=== PATIENT | female | born 1970 | race Caucasian/White ===

== ENCOUNTER 2018-06-03 12:38 | Emergency (ER) | payer BC, MEDICAID ==
[~2018-06-03] VITALS: Ht 162.6 cm; Wt 77.3 kg
[~2018-06-03 12:38] MED LIST: HYDR-3965 PO; LISI-604 PO; PANT40TA39 PO; POTA10TA36 PO; ZES10T PO
[2018-06-03] MEDS ORDERED: ondansetron/PF 4mg/2ml inj IV ONE (13:45)
[2018-06-03] MEDS ORDERED: morphine 4 MG/ML inj SYRINge IV ONE (13:45)
[2018-06-03 14:09] LABS: BASOPHILS % (AUTO) 0.2 % (0-1); EOSINOPHILS # (AUTO) 0.2 X10'3 (0-0.9); EOSINOPHILS % (AUTO) 1.6 % (0-6); HEMATOCRIT 34.4 % (35.0-45.0); HEMOGLOBIN 11.9 g/dl (12.0-16.0); LYMPHOCYTES # (AUTO) 1.3 X10'3 (1.1-4.8); LYMPHOCYTES % (AUTO) 12.1 % (21-51); MEAN CORPUSCULAR HEMOGLOBIN 31.4 PG (27.0-31.0); MEAN CORPUSCULAR HGB CONC 34.6 % (33.0-36.5); MEAN CORPUSCULAR VOLUME 90.8 FL (78-98); MEAN PLATELET VOLUME 8.1 FL (7.4-10.4); MONOCYTES # (AUTO) 1.2 X10'3 (0-0.9); MONOCYTES % (AUTO) 11.2 % (2-12); NEUTROPHILS # (AUTO) 7.9 X10'3 (1.8-7.7); NEUTROPHILS % (AUTO) 74.9 % (42-75); PLATELET COUNT 195 X10'3 (140-440); RED BLOOD COUNT 3.79 X10'6 (4.20-5.60); RED CELL DISTRIBUTION WIDTH 12.3 % (11.5-14.5); WHITE BLOOD COUNT 10.5 X10'3 (4.5-11.0)
[2018-06-03 14:26] LABS: INR 0.9 INR; PARTIAL THROMBOPLASTIN TIME 28 SECONDS (22-32); PROTHROMBIN TIME 9.8 SECONDS (9.0-12.0)
[2018-06-03 14:39] LABS: ALANINE AMINOTRANSFERASE 15 U/L (12-78); ALBUMIN 2.5 G/DL (3.4-5.0); ALBUMIN/GLOBULIN RATIO 0.6 (1.1-1.5); ALKALINE PHOSPHATASE 54 IU/L (46-116); ANION GAP 7 (8-16); ASPARTATE AMINO TRANSFERASE 10 U/L (10-37); BILIRUBIN,TOTAL 0.6 MG/DL (0.1-1.0); BLOOD UREA NITROGEN 15 MG/DL (7-18); BUN/CREATININE RATIO 18.8 (6.6-38.0); CALCIUM 8.2 MG/DL (8.5-10.1); CHLORIDE 98 MMOL/L (99-107); GLUCOSE 137 MG/DL (70-104); LIPASE 68 U/L (73-393); POTASSIUM 3.1 MMOL/L (3.5-5.1); SODIUM 135 MMOL/L (135-145); TOTAL CARBON DIOXIDE 30.1 MMOL/L (24-32); TOTAL PROTEIN 6.7 G/DL (6.4-8.2); eGFR 78 ML/MIN
[2018-06-03] MEDS ORDERED: potassium Cl 20 mEq SR tablet PO STA (14:46)
[2018-06-03] MEDS ORDERED: iohexol 300mg/ml 100ml inj. ONE (14:55)
[2018-06-03 15:14] LABS: URINE HCG NEGATIVE (NEG)
[2018-06-03 15:15] LABS: CLARITY,URINE CLEAR (Clear); COLOR,URINE YELLOW (Yellow); GLUCOSE, URINE 100 mg/dl (Neg); KETONES,URINE NEGATIVE (Neg); LEUKOCYTE ESTERASE ,URINE NEGATIVE (Neg); NITRITES, URINE NEGATIVE (Neg); OCCULT BLOOD,URINE MODERATE (Neg); PROTEIN,URINE NEGATIVE (Neg); UROBILINOGEN,URINE >=8.0 E.U/dL (0.2-1.0)
[2018-06-03 15:21] LABS: UA COLLECTION TYPE CLN CATCH MIDSTREAM
[2018-06-03 15:22] LABS: BACTERIA,URINE 1+ /HPF (Neg); SQUAMOUS EPITHELIAL CELL,UR FEW /LPF (FEW); WBC,URINE 0-4 /HPF (0-4)
[2018-06-03 16:08] VITALS: BP 118/56
== END 2018-06-03 16:10 | disposition home or self-care (01) ==
LOC: ER 12:39
DX: R10.84 Generalized abdominal pain (principal); R31.9 Hematuria, unspecified; R50.9 Fever, unspecified; I10 Essential (primary) hypertension; Z88.0 Allergy status to penicillin; Z79.899 Other long term (current) drug therapy
CPT/HCPCS: 36415; 74177; 80053; 81001; 81025; 83605; 83690; 85025; 85610; 85730; 87040; 96374; 96375; 99285; J2270; J2405; J7030; Q9967

== ENCOUNTER 2018-06-06 11:09 | Inpatient (IN) | payer MEDICAID ==
[~2018-06-06] VITALS: Ht 162.6 cm; Wt 83.8 kg
[2018-06-06] VITALS (16 sets, daily range): BP systolic 87–100; BP diastolic 45–94
[2018-06-06] MEDS ORDERED: famotidine 20mg tablet PO ONE (12:46)
[2018-06-06] MEDS ORDERED: clindamycin-Cleocin 900mg/D5W 50 ML IV ONE (12:46)
[2018-06-06] MEDS ORDERED: NORMAL SALINE IV ONE (12:47)
[2018-06-06] MEDS ORDERED: GENTAMICIN IV ONE (12:47)
[2018-06-06] MEDS ORDERED: ringers solution, lacted 1,000 ML IV SCH ×2 (12:48→14:14)
[2018-06-06] MEDS ORDERED: LIDOcaine 1% (10mg/ml) 2ml vial ONE (13:09)
[2018-06-06] MEDS ORDERED: oxyCODONE/APAP 10/325mg tablet PO ONE (13:10)
[2018-06-06 13:14] LABS: BASOPHILS % (AUTO) 0.2 % (0-1); EOSINOPHILS # (AUTO) 0.2 X10'3 (0-0.9); EOSINOPHILS % (AUTO) 1.9 % (0-6); HEMATOCRIT 30.5 % (35.0-45.0); HEMOGLOBIN 10.6 g/dl (12.0-16.0); LYMPHOCYTES # (AUTO) 1.3 X10'3 (1.1-4.8); LYMPHOCYTES % (AUTO) 11.8 % (21-51); MEAN CORPUSCULAR HEMOGLOBIN 31.7 PG (27.0-31.0); MEAN CORPUSCULAR HGB CONC 34.5 % (33.0-36.5); MEAN CORPUSCULAR VOLUME 91.9 FL (78-98); MEAN PLATELET VOLUME 7.7 FL (7.4-10.4); MONOCYTES # (AUTO) 0.9 X10'3 (0-0.9); MONOCYTES % (AUTO) 8.8 % (2-12); NEUTROPHILS # (AUTO) 8.3 X10'3 (1.8-7.7); NEUTROPHILS % (AUTO) 77.3 % (42-75); PLATELET COUNT 224 X10'3 (140-440); RED BLOOD COUNT 3.32 X10'6 (4.20-5.60); RED CELL DISTRIBUTION WIDTH 12.4 % (11.5-14.5); WHITE BLOOD COUNT 10.7 X10'3 (4.5-11.0)
[2018-06-06 13:27] LABS: ALANINE AMINOTRANSFERASE 37 U/L (12-78); ALBUMIN 2.3 G/DL (3.4-5.0); ALBUMIN/GLOBULIN RATIO 0.5 (1.1-1.5); ALKALINE PHOSPHATASE 80 IU/L (46-116); ANION GAP 6 (8-16); ASPARTATE AMINO TRANSFERASE 28 U/L (10-37); BILIRUBIN,TOTAL 0.5 MG/DL (0.1-1.0); BLOOD UREA NITROGEN 36 MG/DL (7-18); BUN/CREATININE RATIO 32.7 (6.6-38.0); CALCIUM 8.4 MG/DL (8.5-10.1); CHLORIDE 98 MMOL/L (99-107); GLUCOSE 115 MG/DL (70-104); POTASSIUM 3.5 MMOL/L (3.5-5.1); SODIUM 133 MMOL/L (135-145); TOTAL CARBON DIOXIDE 29.1 MMOL/L (24-32); eGFR 54 ML/MIN
[2018-06-06] MEDS ORDERED: hydrALAZINE 20mg/ml inj. IV PRN (14:15)
[2018-06-06] MEDS ORDERED: morphine 4 MG/ML inj SYRINge IV PRN ×2 (14:15)
[2018-06-06] MEDS ORDERED: HYDROmorphone 1 mg/ml syringe IV PRN ×2 (14:15)
[2018-06-06] MEDS ORDERED: labetalol 20mg/4ml (5mg/ml) syringe IV PRN (14:15)
[2018-06-06] MEDS ORDERED: ondansetron/PF 4mg/2ml inj IV PRN (14:15)
[2018-06-06] MEDS ORDERED: fentaNYL/PF 50MCG/1 ML 2ML syringe ONE (15:11)
[2018-06-06] MEDS ORDERED: midazolam 2 mg/2 ml injection ONE (15:12)
[2018-06-06] MEDS ORDERED: LIDOcaine 2% (20mg/ml) 5ml vial ONE (15:13)
[2018-06-06] MEDS ORDERED: glycopyrrolate 0.2mg/ml inj ONE (15:13)
[2018-06-06] MEDS ORDERED: neostigmine methylsulfate 1 MG/ML 10ml vial ONE (15:13)
[2018-06-06] MEDS ORDERED: rocuronium 10mg/ml inj IV ONE (15:13)
[2018-06-06] MEDS ORDERED: propofol inj 20 ML IV ONE (15:13)
[2018-06-06] MEDS ORDERED: ondansetron/PF 4mg/2ml inj ONE (15:14)
[2018-06-06] MEDS ORDERED: sevoflurane 250ml liquid IH ONE (15:18)
[2018-06-06] MEDS ORDERED: dexamethasone sod phosphate 4mg/ml inj. ONE (15:37)
[2018-06-06 15:54] LABS: CLARITY,URINE CLEAR (Clear); COLOR,URINE YELLOW (Yellow); GLUCOSE, URINE NEGATIVE (Neg); KETONES,URINE NEGATIVE (Neg); LEUKOCYTE ESTERASE ,URINE NEGATIVE (Neg); NITRITES, URINE NEGATIVE (Neg); OCCULT BLOOD,URINE LARGE (Neg); PH,URINE 5.5 (4.8-8.0); PROTEIN,URINE NEGATIVE (Neg)
[2018-06-06 15:58] LABS: UA COLLECTION TYPE CLN CATCH MIDSTREAM
[2018-06-06 16:01] LABS: BACTERIA,URINE NONE SEEN /HPF (Neg); SQUAMOUS EPITHELIAL CELL,UR FEW /LPF (FEW); WBC,URINE 0-4 /HPF (0-4)
[2018-06-06] MEDS ORDERED: glucagon, human recombinant 1mg kit SUBCUT PRN (16:10)
[2018-06-06] MEDS ORDERED: insulin Lispro (HumaLOG) vial - multi-dose SQ SCH (16:10)
[2018-06-06] MEDS ORDERED: dextrose 50%-water 50ml dispensing syringe IV PRN ×2 (16:10)
[2018-06-06] MEDS ORDERED: naloxone 0.4 mg/ml inj IV PRN (16:10)
[2018-06-06] MEDS ORDERED: MESSAGE TO PHARMACY PO ONE (16:10)
[2018-06-06] MEDS ORDERED: CADD PCA waste documentation MC PRN (16:10)
[2018-06-06] MEDS ORDERED: HYDROcodone/acetaminophen 5mg/325mg tablet PO PRN (16:10)
[2018-06-06] MEDS ORDERED: dextrose ORAL solution 15 GM/59 ML bottle PO PRN ×2 (16:10)
[2018-06-06 16:41] LABS: HEMOGLOBIN A1C 6.1 % (4.5-6.2)
[2018-06-06] MEDS: HYDROmorphone/NS 1 mg/ml CADD 50 ML IV SCH ×4 (17:20→23:00)
[2018-06-06] MEDS: insulin glargine (Lantus) pen - multi-dose SQ SCH (21:00)
[2018-06-06] MEDS: Potassium Cl inj 20 MEQ in ringers solution, lacted 1,000 ML IV SCH (21:03)
[2018-06-06] MEDS ORDERED: SERT100T PO (23:24)
[2018-06-06] MEDS ORDERED: LISI-600 PO (23:24)
[2018-06-06] MEDS ORDERED: ATEN25TA7 PO (23:24)
[2018-06-06] MEDS ORDERED: HYDR-565 PO (23:28)
[2018-06-07] VITALS: BP 90/56
[2018-06-07] MEDS: Potassium Cl inj 20 MEQ in ringers solution, lacted 1,000 ML IV SCH ×4 (00:14→21:31)
[2018-06-07] MEDS: HYDROmorphone/NS 1 mg/ml CADD 50 ML IV SCH ×12 (01:00→23:00)
[2018-06-07 04:00] VITALS: BP 99/49
[2018-06-07 05:15] LABS: BASOPHILS % (AUTO) 0.1 % (0-1); EOSINOPHILS % (AUTO) 0 % (0-6); HEMATOCRIT 31.5 % (35.0-45.0); HEMOGLOBIN 10.7 g/dl (12.0-16.0); LYMPHOCYTES # (AUTO) 0.7 X10'3 (1.1-4.8); LYMPHOCYTES % (AUTO) 5.4 % (21-51); MEAN CORPUSCULAR HEMOGLOBIN 31.4 PG (27.0-31.0); MEAN CORPUSCULAR HGB CONC 34.1 % (33.0-36.5); MEAN CORPUSCULAR VOLUME 92.2 FL (78-98); MEAN PLATELET VOLUME 8.4 FL (7.4-10.4); MONOCYTES # (AUTO) 0.5 X10'3 (0-0.9); MONOCYTES % (AUTO) 4.4 % (2-12); NEUTROPHILS # (AUTO) 11.1 X10'3 (1.8-7.7); NEUTROPHILS % (AUTO) 90.1 % (42-75); PLATELET COUNT 230 X10'3 (140-440); RED BLOOD COUNT 3.42 X10'6 (4.20-5.60); RED CELL DISTRIBUTION WIDTH 12.1 % (11.5-14.5); WHITE BLOOD COUNT 12.3 X10'3 (4.5-11.0)
[2018-06-07] MEDS: lisinopril 10 MG tablet PO SCH (08:00)
[2018-06-07 08:06] VITALS: BP 103/52
[2018-06-07 11:37] VITALS: BP 117/57
[2018-06-07] MEDS: levoFLOXACIN-Levaquin 500mg/D5 100 ML IV SCH (14:39)
[2018-06-07 20:00] VITALS: BP 114/56
[2018-06-07] MEDS: insulin glargine (Lantus) pen - multi-dose SQ SCH (21:00)
[2018-06-07] MEDS: docusate sod 100mg capsule PO SCH (21:29)
[2018-06-08] VITALS: BP 101/52
[2018-06-08] MEDS: HYDROmorphone/NS 1 mg/ml CADD 50 ML IV SCH ×12 (01:00→23:00)
[2018-06-08 04:06] LABS: BASOPHILS % (AUTO) 0.4 % (0-1); EOSINOPHILS # (AUTO) 0.1 X10'3 (0-0.9); EOSINOPHILS % (AUTO) 1.2 % (0-6); HEMATOCRIT 28.9 % (35.0-45.0); HEMOGLOBIN 9.8 g/dl (12.0-16.0); LYMPHOCYTES # (AUTO) 1.4 X10'3 (1.1-4.8); LYMPHOCYTES % (AUTO) 16.6 % (21-51); MEAN CORPUSCULAR HEMOGLOBIN 31.3 PG (27.0-31.0); MEAN CORPUSCULAR HGB CONC 33.8 % (33.0-36.5); MEAN CORPUSCULAR VOLUME 92.8 FL (78-98); MONOCYTES # (AUTO) 0.6 X10'3 (0-0.9); MONOCYTES % (AUTO) 7.4 % (2-12); NEUTROPHILS # (AUTO) 6.3 X10'3 (1.8-7.7); NEUTROPHILS % (AUTO) 74.4 % (42-75); PLATELET COUNT 245 X10'3 (140-440); RED BLOOD COUNT 3.12 X10'6 (4.20-5.60); RED CELL DISTRIBUTION WIDTH 12.5 % (11.5-14.5); WHITE BLOOD COUNT 8.5 X10'3 (4.5-11.0)
[2018-06-08] MEDS: Potassium Cl inj 20 MEQ in ringers solution, lacted 1,000 ML IV SCH ×3 (04:15→22:32)
[2018-06-08 06:52] VITALS: BP 113/62
[2018-06-08] MEDS: docusate sod 100mg capsule PO SCH ×2 (07:52→19:41)
[2018-06-08] MEDS: levoFLOXACIN-Levaquin 500mg/D5 100 ML IV SCH (07:52)
[2018-06-08] MEDS: lisinopril 10 MG tablet PO SCH (07:52)
[2018-06-08 11:01] VITALS: BP 107/61
[2018-06-08 18:00] VITALS: BP 121/60
[2018-06-08] MEDS ORDERED: mineral oil 133ml enema RC PRN (18:35)
[2018-06-08] MEDS: insulin glargine (Lantus) pen - multi-dose SQ SCH (21:00)
[2018-06-09] VITALS: BP 103/50
[2018-06-09] MEDS: HYDROmorphone/NS 1 mg/ml CADD 50 ML IV SCH ×12 (01:00→23:00)
[2018-06-09 05:48] LABS: BASOPHILS % (AUTO) 0.5 % (0-1); EOSINOPHILS # (AUTO) 0.1 X10'3 (0-0.9); EOSINOPHILS % (AUTO) 1.3 % (0-6); HEMATOCRIT 31.4 % (35.0-45.0); HEMOGLOBIN 10.8 g/dl (12.0-16.0); LYMPHOCYTES # (AUTO) 1.4 X10'3 (1.1-4.8); LYMPHOCYTES % (AUTO) 17.1 % (21-51); MEAN CORPUSCULAR HEMOGLOBIN 31.3 PG (27.0-31.0); MEAN CORPUSCULAR HGB CONC 34.2 % (33.0-36.5); MEAN CORPUSCULAR VOLUME 91.4 FL (78-98); MEAN PLATELET VOLUME 8.3 FL (7.4-10.4); MONOCYTES # (AUTO) 0.7 X10'3 (0-0.9); MONOCYTES % (AUTO) 8.8 % (2-12); NEUTROPHILS # (AUTO) 5.9 X10'3 (1.8-7.7); NEUTROPHILS % (AUTO) 72.3 % (42-75); PLATELET COUNT 307 X10'3 (140-440); RED BLOOD COUNT 3.44 X10'6 (4.20-5.60); RED CELL DISTRIBUTION WIDTH 12.4 % (11.5-14.5); WHITE BLOOD COUNT 8.1 X10'3 (4.5-11.0)
[2018-06-09 08:00] VITALS: BP 116/72
[2018-06-09] MEDS: lisinopril 10 MG tablet PO SCH (08:12)
[2018-06-09] MEDS: docusate sod 100mg capsule PO SCH ×2 (08:12→19:10)
[2018-06-09] MEDS: levoFLOXACIN-Levaquin 500mg/D5 100 ML IV SCH (08:12)
[2018-06-09] MEDS: Potassium Cl inj 20 MEQ in ringers solution, lacted 1,000 ML IV SCH ×2 (10:41→17:01)
[2018-06-09 12:25] VITALS: BP 119/77
[2018-06-09] MEDS ORDERED: diphenhydrAMINE 50 mg/ml inj IV ONE (12:55)
[2018-06-09 18:00] VITALS: BP 106/58
[2018-06-09] MEDS: lactobacillus rhamnosus 10,000 MMU CELLS/CAPSULE PO SCH (19:11)
[2018-06-09] MEDS: insulin glargine (Lantus) pen - multi-dose SQ SCH (21:00)
[2018-06-10] VITALS: BP 96/51
[2018-06-10] MEDS: HYDROmorphone/NS 1 mg/ml CADD 50 ML IV SCH ×7 (00:42→13:00)
[2018-06-10] MEDS: Potassium Cl inj 20 MEQ in ringers solution, lacted 1,000 ML IV SCH ×2 (00:42→08:32)
[2018-06-10 05:15] LABS: BASOPHILS % (AUTO) 0.4 % (0-1); EOSINOPHILS # (AUTO) 0.1 X10'3 (0-0.9); EOSINOPHILS % (AUTO) 0.8 % (0-6); HEMATOCRIT 31.2 % (35.0-45.0); HEMOGLOBIN 10.6 g/dl (12.0-16.0); LYMPHOCYTES # (AUTO) 1.6 X10'3 (1.1-4.8); LYMPHOCYTES % (AUTO) 19.9 % (21-51); MEAN CORPUSCULAR HEMOGLOBIN 31.2 PG (27.0-31.0); MEAN CORPUSCULAR VOLUME 91.5 FL (78-98); MEAN PLATELET VOLUME 7.9 FL (7.4-10.4); MONOCYTES # (AUTO) 0.6 X10'3 (0-0.9); MONOCYTES % (AUTO) 7.5 % (2-12); NEUTROPHILS # (AUTO) 5.8 X10'3 (1.8-7.7); NEUTROPHILS % (AUTO) 71.4 % (42-75); PLATELET COUNT 328 X10'3 (140-440); RED BLOOD COUNT 3.41 X10'6 (4.20-5.60); RED CELL DISTRIBUTION WIDTH 12.6 % (11.5-14.5); WHITE BLOOD COUNT 8.1 X10'3 (4.5-11.0)
[2018-06-10 08:00] VITALS: BP 117/70
[2018-06-10] MEDS: docusate sod 100mg capsule PO SCH (08:30)
[2018-06-10] MEDS: lisinopril 10 MG tablet PO SCH (08:30)
[2018-06-10] MEDS: lactobacillus rhamnosus 10,000 MMU CELLS/CAPSULE PO SCH (08:30)
[2018-06-10] MEDS ORDERED: levoFLOXACIN 500mg tablet PO SCH (11:00)
[2018-06-10 12:00] VITALS: BP 132/76
[2018-06-10] MEDS ORDERED: CLIN150C2 PO (15:15)
[2018-06-10] MEDS ORDERED: HYDR-565 PO (15:15)
== END 2018-06-10 17:34 | disposition home health service (06) | DRG 711 ==
LOC: PAS IN 11:58 → SUR 3N 17:16
PROVIDERS: ADMIT Surgery; ATTEND Surgery
PROC: 0WPF0JZ Removal of Synthetic Substitute from Abdominal Wall, Open Approach (ICD-10-PCS; principal; 2018-06-06 15:18)
DX: T81.4XXA Infection following a procedure, initial encounter (principal); L02.211 Cutaneous abscess of abdominal wall; E11.9 Type 2 diabetes mellitus without complications; Z80.51 Family history of malignant neoplasm of kidney; Z87.891 Personal history of nicotine dependence; Z88.0 Allergy status to penicillin; Z90.710 Acquired absence of both cervix and uterus; Y83.8 Other surgical procedures as the cause of abnormal reaction of the patient, or of later complication, without mention of misadventure at the time of the procedure; Y92.89 Other specified places as the place of occurrence of the external cause
CPT/HCPCS: 36415; 80053; 81001; 82948; 83036; 85025; 87070; 87077; 87185; A4649; A6212; A6449; A7000; C1758; J1100; J1170; J1200; J1580; J1815; J1956; J2001; J2250; J2405; J2704; J2710; J3010; J3480; J3490; J7030; J7120

== ENCOUNTER 2018-07-12 08:56 | Day surgery (SDC) | payer BC ==
[~2018-07-12 08:56] MED LIST changes: +ATEN25TA7 PO; -HYDR-3965 PO; +HYDR-4353 PO; -LISI-604 PO; -PANT40TA39 PO; -POTA10TA36 PO; +SERT100T PO
[2018-07-12] MEDS ORDERED: LIDOcaine/PRILOcaine 5gm cream TP ONE (09:45)
[2018-07-12] MEDS ORDERED: mupirocin 2% ointment 22GM ONE (10:24)
[2018-07-12] MEDS ORDERED: nystatin/triamcinolone cream 15gm TP ONE (10:27)
== END 2018-07-12 10:35 | disposition home or self-care (01) ==
LOC: WOUND CARE 08:56
PROVIDERS: ATTEND Surgery
DX: T81.89XA Other complications of procedures, not elsewhere classified, initial encounter (principal); E11.622 Type 2 diabetes mellitus with other skin ulcer; L98.491 Non-pressure chronic ulcer of skin of other sites limited to breakdown of skin; E11.22 Type 2 diabetes mellitus with diabetic chronic kidney disease; I12.9 Hypertensive chronic kidney disease with stage 1 through stage 4 chronic kidney disease, or unspecified chronic kidney disease; N18.9 Chronic kidney disease, unspecified; E11.42 Type 2 diabetes mellitus with diabetic polyneuropathy; E11.311 Type 2 diabetes mellitus with unspecified diabetic retinopathy with macular edema; F32.9 Major depressive disorder, single episode, unspecified; Z89.421 Acquired absence of other right toe(s); Z99.2 Dependence on renal dialysis; Z94.0 Kidney transplant status; Z79.891 Long term (current) use of opiate analgesic; Z79.899 Other long term (current) drug therapy; Z87.891 Personal history of nicotine dependence; Z79.4 Long term (current) use of insulin; Z79.82 Long term (current) use of aspirin; X58.XXXA Exposure to other specified factors, initial encounter; Y93.89 Activity, other specified; Y92.89 Other specified places as the place of occurrence of the external cause; Y99.8 Other external cause status
CPT/HCPCS: 17250; A6021; A6222

== ENCOUNTER 2019-03-06 10:34 | Inpatient (IN) | payer BC, OTHER ==
[~2019-03-06] VITALS: Ht 152.4 cm; Wt 86.4 kg
[~2019-03-06 10:34] MED LIST changes: -HYDR-4353 PO
[2019-03-06] MEDS ORDERED: normal saline 1000ML IV soln IVB ONE (10:50)
[2019-03-06] MEDS ORDERED: ketorolac trometh. 30mg/ml inj. IV ONE (10:50)
[2019-03-06 11:02] LABS: BASOPHILS # (AUTO) 0.1 X10'3 (0-0.2); BASOPHILS % (AUTO) 0.7 % (0-1); EOSINOPHILS # (AUTO) 0.1 X10'3 (0-0.9); EOSINOPHILS % (AUTO) 0.8 % (0-6); HEMATOCRIT 38.9 % (35.0-45.0); HEMOGLOBIN 13.5 g/dl (12.0-16.0); LYMPHOCYTES # (AUTO) 1.6 X10'3 (1.1-4.8); LYMPHOCYTES % (AUTO) 18.5 % (21-51); MEAN CORPUSCULAR HEMOGLOBIN 31.8 PG (27.0-31.0); MEAN CORPUSCULAR HGB CONC 34.8 g/dL (33.0-36.5); MEAN CORPUSCULAR VOLUME 91.3 FL (78-98); MEAN PLATELET VOLUME 8.4 FL (7.4-10.4); MONOCYTES # (AUTO) 0.9 X10'3 (0-0.9); MONOCYTES % (AUTO) 10.4 % (2-12); NEUTROPHILS # (AUTO) 6.1 X10'3 (1.8-7.7); NEUTROPHILS % (AUTO) 69.6 % (42-75); PLATELET COUNT 180 X10'3 (140-440); RED BLOOD COUNT 4.26 X10'6 (4.20-5.60); RED CELL DISTRIBUTION WIDTH 11.9 % (11.5-14.5); WHITE BLOOD COUNT 8.8 X10'3 (4.5-11.0)
[2019-03-06 11:15] LABS: ALANINE AMINOTRANSFERASE 26 U/L (12-78); ALBUMIN 3.3 G/DL (3.4-5.0); ALBUMIN/GLOBULIN RATIO 0.8 (1.1-1.5); ALKALINE PHOSPHATASE 80 IU/L (46-116); ANION GAP 6 (8-16); ASPARTATE AMINO TRANSFERASE 16 U/L (10-37); BILIRUBIN,TOTAL 0.4 MG/DL (0.1-1.0); BLOOD UREA NITROGEN 10 MG/DL (7-18); BUN/CREATININE RATIO 11.9 (6.6-38.0); CALCIUM 8.6 MG/DL (8.5-10.1); CHLORIDE 100 MMOL/L (99-107); CREATININE 0.84 MG/DL (0.40-0.90); GLUCOSE 150 MG/DL (70-104); SODIUM 137 MMOL/L (135-145); TOTAL CARBON DIOXIDE 31.1 MMOL/L (24-32); TOTAL PROTEIN 7.4 G/DL (6.4-8.2); eGFR 73 ML/MIN
[2019-03-06 11:21] LABS: D-DIMER 0.97 MG/L FEU (0-0.50)
[2019-03-06] MEDS ORDERED: iohexol 350MG/ML 100ml bottle IV ONE (11:46)
--- NOTE | 2019-03-06 12:25 | NUR ---
PT BACK FROM CT SCAN CONNECTED BACK TO IV FLUIDS.
[2019-03-06] MEDS ORDERED: heparin 10,000 units/1 ML INJ IV ONE ×4 (12:40→13:35)
[2019-03-06] MEDS ORDERED: heparin 10,000 units/1 ML INJ IV PRN (12:40)
[2019-03-06] MEDS: heparin 25,000 UNIT/250ml bag 250 ML IV SCH ×4 (13:07→22:55)
[2019-03-06] MEDS ORDERED: ondansetron/PF 4mg/2ml inj IV PRN (13:15)
[2019-03-06] MEDS ORDERED: magnesium 4gm in 100ml NS 100 ML IV PRN (13:15)
[2019-03-06] MEDS ORDERED: potassium CL 10mEq/100ml bag 100 ML IV PRN (13:15)
[2019-03-06] MEDS ORDERED: magnesium Cl slow-release 64mg tablet PO PRN (13:15)
[2019-03-06] MEDS ORDERED: mag hydrox/Alum hydrox/simeth 30ml oral suspension PO PRN (13:15)
[2019-03-06] MEDS: K and/or MAG REPLACEMENT MC SCH (13:15)
[2019-03-06] MEDS ORDERED: acetaminophen 325mg tablet PO PRN (13:15)
[2019-03-06] MEDS ORDERED: bisacodyl 10mg suppository rectal RC PRN (13:15)
[2019-03-06] MEDS ORDERED: magnesium hydroxide 30ml (MOM) UD suspension PO PRN (13:15)
[2019-03-06] MEDS ORDERED: HYDROcodone/acetaminophen 5mg/325mg tablet PO PRN (13:15)
[2019-03-06] MEDS ORDERED: potassium Cl 20 mEq SR tablet PO PRN (13:15)
[2019-03-06] MEDS ORDERED: HYDROmorphone inj. 0.5 MG/0.5 ML DISP.SYRIN IV PRN (13:15)
[2019-03-06] MEDS ORDERED: potassium Cl 40MEQ/NS 500ml 500 ML IV PRN (13:15)
[2019-03-06] MEDS ORDERED: magnesium 2GM in 50ml NS 50 ML IV PRN (13:15)
--- NOTE | 2019-03-06 13:15 | NUR ---
DR CRUZ CAME TO ROOM WHILE I WAS ADMINISTERING THE BOLUS DOSE OF HEPARIN 7000 UNIT,HALF OF WAS GIVEN 3500 UNIT,DR CRUZ SAID HOLD THE HEPARIN FOR NOW NO INFUSION NO BOLUS INFORMED THAT 3500UNITS OF THE BOLUS HEPARIN GIVEN DR MARTINEZ IS AWARE.HEPARIN INFUSION WAS NOT STARTED YET SO STILL ON HOLD MD ORDERS.
[2019-03-06] MEDS ORDERED: heparin 25,000 UNIT/250ml bag 250 ML IV SCH (13:18)
[2019-03-06] MEDS: potassium Cl 20 mEq SR tablet PO PRN ×2 (14:07→21:16)
[2019-03-06 16:12] VITALS: BP 116/52
--- NOTE | 2019-03-06 16:19 | NUR ---
Received report from Ángel in ER. Patient settled in room 318 A, Given call valadez and oriented to room and bed. Care plan reviewed and problems prioritized.
--- NOTE | 2019-03-06 16:44 | NUR ---
Page to ECHO - 4994O pt Sancho. Has active ECHO order. Thanks.
--- NOTE | 2019-03-06 16:47 | NUR ---
Page to Vascular - [id number] - pt Sancho. Has active order for VL Venous. Thanks.
[2019-03-06 16:56] LABS: PARTIAL THROMBOPLASTIN TIME 150 SECONDS (22-32)
--- NOTE | 2019-03-06 17:03 | NUR ---
PAGER ID: [phone] MESSAGE: [id number] pt Sancho GARIBAY critical PTT of 150. Heparin on hold per protocol. Thank you - Kay [phone]
--- NOTE | 2019-03-06 17:36 | NUR ---
Orientee documentation: I have reviewed and agree with interventions, assessments performed and documented by POLINA Hermosillo. Orientee Medication Administration: For this medication-pass time frame, medication were reviewed, dispensed, administered and documented per hospital policy by POLINA Hermosillo.
--- NOTE | 2019-03-06 18:21 | NUR ---
Problems reprioritized. Patient report given, questions answered & plan of care reviewed with POLINA Delatorre.
--- NOTE | 2019-03-06 18:46 | NUR ---
Patient in room PCU 3018. I have received report from Kay FISH and had the opportunity to ask questions and assume patient care.
[2019-03-06] MEDS: HYDROcodone/acetaminophen 10/325mg tab PO PRN (19:17)
[2019-03-06] MEDS: heparin 10,000 units/1 ML INJ IV PRN (22:51)
[2019-03-06 23:00] VITALS: BP 108/47
--- NOTE | 2019-03-07 02:00 | NUR ---
pt c/o pain on right chest radiate to your back and neck, hurt to breath, gave 0.5 mg dilaudid for pain 05/19. Pt is stated to feel better but still hurt a lot, pt was able to go to the restroom and take oral medication Addendum: 03/07/19 at 0348 by Nandini King RN notified dr. leonard NG gave an order of toradol 15mg, q6h
[2019-03-07] MEDS: potassium Cl 20 mEq SR tablet PO PRN (02:08)
[2019-03-07 03:00] VITALS: BP 129/58
[2019-03-07] MEDS ORDERED: ketorolac tromethamine 15mg/ml inj. IM PRN (03:55)
[2019-03-07 05:50] LABS: BASOPHILS % (AUTO) 0.4 % (0-1); EOSINOPHILS # (AUTO) 0.1 X10'3 (0-0.9); HEMATOCRIT 34.3 % (35.0-45.0); HEMOGLOBIN 11.9 g/dl (12.0-16.0); LYMPHOCYTES # (AUTO) 2.1 X10'3 (1.1-4.8); LYMPHOCYTES % (AUTO) 25.5 % (21-51); MEAN CORPUSCULAR HEMOGLOBIN 31.7 PG (27.0-31.0); MEAN CORPUSCULAR HGB CONC 34.8 g/dL (33.0-36.5); MEAN CORPUSCULAR VOLUME 91.1 FL (78-98); MEAN PLATELET VOLUME 9.2 FL (7.4-10.4); MONOCYTES # (AUTO) 0.8 X10'3 (0-0.9); MONOCYTES % (AUTO) 9.5 % (2-12); NEUTROPHILS # (AUTO) 5.1 X10'3 (1.8-7.7); NEUTROPHILS % (AUTO) 63.6 % (42-75); PLATELET COUNT 158 X10'3 (140-440); RED BLOOD COUNT 3.76 X10'6 (4.20-5.60); RED CELL DISTRIBUTION WIDTH 12.1 % (11.5-14.5); WHITE BLOOD COUNT 8.1 X10'3 (4.5-11.0)
[2019-03-07 06:00] VITALS: BP 102/44
--- NOTE | 2019-03-07 06:00 | NUR ---
Report received on patient. Questions answered and care plan reviewed. Problem list reprioritized.
[2019-03-07 06:15] LABS: ALANINE AMINOTRANSFERASE 24 U/L (12-78); ALBUMIN 2.8 G/DL (3.4-5.0); ALBUMIN/GLOBULIN RATIO 0.7 (1.1-1.5); ALKALINE PHOSPHATASE 55 IU/L (46-116); ANION GAP 5 (8-16); ASPARTATE AMINO TRANSFERASE 15 U/L (10-37); BILIRUBIN,TOTAL 0.4 MG/DL (0.1-1.0); BLOOD UREA NITROGEN 10 MG/DL (7-18); BUN/CREATININE RATIO 14.3 (6.6-38.0); CALCIUM 8.6 MG/DL (8.5-10.1); CHLORIDE 105 MMOL/L (99-107); GLUCOSE 114 MG/DL (70-104); MAGNESIUM 1.8 MG/DL (1.5-2.4); POTASSIUM 3.9 MMOL/L (3.5-5.1); SODIUM 141 MMOL/L (135-145); TOTAL CARBON DIOXIDE 30.8 MMOL/L (24-32); TOTAL PROTEIN 6.6 G/DL (6.4-8.2); eGFR 90 ML/MIN
--- NOTE | 2019-03-07 06:32 | NUR ---
Problems reprioritized. Patient report given, questions answered & plan of care reviewed with Leidy FISH.
--- NOTE | 2019-03-07 06:34 | NUR ---
Patient in room PCU 3018. I have received report from POLINA Delatorre and had the opportunity to ask questions and assume patient care.
[2019-03-07] MEDS: heparin 25,000 UNIT/250ml bag 250 ML IV SCH ×2 (07:09→10:14)
[2019-03-07] MEDS: lisinopril 10 MG tablet PO SCH (07:51)
[2019-03-07] MEDS: sertraline 50mg tablet PO SCH (07:52)
[2019-03-07] MEDS: HYDROcodone/acetaminophen 10/325mg tab PO PRN ×2 (07:53→22:26)
[2019-03-07] MEDS: atenolol 25mg tablet PO SCH (07:57)
[2019-03-07] MEDS ORDERED: ketorolac tromethamine 15mg/ml inj. IV SCH (08:00)
[2019-03-07] MEDS: K and/or MAG REPLACEMENT MC SCH (08:00)
[2019-03-07] MEDS ORDERED: ketorolac tromethamine 15mg/ml inj. IV PRN (08:00)
--- NOTE | 2019-03-07 09:50 | NUR ---
Checked on patient's pain level and found her to be sleeping soundly. Additional meds held at this time.
[2019-03-07 11:00] VITALS: BP 99/39
--- NOTE | 2019-03-07 13:00 | NUR ---
Patient in room with . Is very anxious, crying. Is scared regarding her DX, worried that she is going to . Patient told that no one had been in her room all day and she hadn't received pain med since last night. Patient advised that we have been in several times to check on her and she was sleeping. In fact, she slept through her VS. Also advised that she was medicated this am. Re-assessed need for pain medication and it was given.
[2019-03-07 15:00] VITALS: BP 131/70
--- NOTE | 2019-03-07 16:52 | NUR ---
Priorities assessed and reprioritized.
--- NOTE | 2019-03-07 18:20 | NUR ---
Patient in room PCU 3018. I have received report from Vane FISH and had the opportunity to ask questions and assume patient care.
--- NOTE | 2019-03-07 18:26 | NUR ---
Problems reprioritized. Patient report given, questions answered & plan of care reviewed with POLINA Ellsworth.
--- NOTE | 2019-03-07 18:27 | NUR ---
Orientee documentation: I have reviewed and agree with all interventions, assessments performed and documented by POLINA Hermosillo.
[2019-03-07 18:57] VITALS: BP 104/44
[2019-03-07 23:00] VITALS: BP 114/70
[2019-03-08] MEDS: heparin 25,000 UNIT/250ml bag 250 ML IV SCH ×3 (02:19→18:23)
[2019-03-08] MEDS: heparin 10,000 units/1 ML INJ IV PRN ×2 (02:23→18:18)
[2019-03-08 03:00] VITALS: BP 116/59
[2019-03-08 05:40] LABS: BASOPHILS # (AUTO) 0.1 X10'3 (0-0.2); BASOPHILS % (AUTO) 1.2 % (0-1); EOSINOPHILS # (AUTO) 0.1 X10'3 (0-0.9); EOSINOPHILS % (AUTO) 1.4 % (0-6); HEMATOCRIT 36.5 % (35.0-45.0); HEMOGLOBIN 12.5 g/dl (12.0-16.0); LYMPHOCYTES # (AUTO) 2.4 X10'3 (1.1-4.8); MEAN CORPUSCULAR HEMOGLOBIN 31.8 PG (27.0-31.0); MEAN CORPUSCULAR HGB CONC 34.3 g/dL (33.0-36.5); MEAN CORPUSCULAR VOLUME 92.6 FL (78-98); MEAN PLATELET VOLUME 9.2 FL (7.4-10.4); MONOCYTES # (AUTO) 0.6 X10'3 (0-0.9); MONOCYTES % (AUTO) 7.6 % (2-12); NEUTROPHILS # (AUTO) 4.3 X10'3 (1.8-7.7); NEUTROPHILS % (AUTO) 57.8 % (42-75); PLATELET COUNT 189 X10'3 (140-440); RED BLOOD COUNT 3.94 X10'6 (4.20-5.60); RED CELL DISTRIBUTION WIDTH 11.9 % (11.5-14.5); WHITE BLOOD COUNT 7.4 X10'3 (4.5-11.0)
[2019-03-08 05:57] LABS: ALANINE AMINOTRANSFERASE 21 U/L (12-78); ALBUMIN 2.7 G/DL (3.4-5.0); ALBUMIN/GLOBULIN RATIO 0.7 (1.1-1.5); ALKALINE PHOSPHATASE 55 IU/L (46-116); ANION GAP 6 (8-16); ASPARTATE AMINO TRANSFERASE 13 U/L (10-37); BILIRUBIN,TOTAL 0.4 MG/DL (0.1-1.0); BLOOD UREA NITROGEN 8 MG/DL (7-18); BUN/CREATININE RATIO 12.5 (6.6-38.0); CALCIUM 8.9 MG/DL (8.5-10.1); CHLORIDE 107 MMOL/L (99-107); CREATININE 0.64 MG/DL (0.40-0.90); GLUCOSE 104 MG/DL (70-104); POTASSIUM 3.8 MMOL/L (3.5-5.1); SODIUM 143 MMOL/L (135-145); TOTAL PROTEIN 6.6 G/DL (6.4-8.2); eGFR > 90 ML/MIN
--- NOTE | 2019-03-08 06:15 | NUR ---
Problems reprioritized. Patient report given, questions answered & plan of care reviewed with Vane FISH.
--- NOTE | 2019-03-08 06:28 | NUR ---
Patient in room PCU 3018. I have received report from POLINA Ellsworth and had the opportunity to ask questions and assume patient care.
[2019-03-08 07:00] VITALS: BP 145/90
[2019-03-08] MEDS: lisinopril 10 MG tablet PO SCH (07:42)
[2019-03-08] MEDS: sertraline 50mg tablet PO SCH (07:42)
[2019-03-08] MEDS: atenolol 25mg tablet PO SCH (07:42)
[2019-03-08] MEDS: K and/or MAG REPLACEMENT MC SCH (08:00)
--- NOTE | 2019-03-08 09:55 | NUR ---
Received critical DVT PTT of 103. Dr. Dow notified at nurses station. Heparin gtt stopped per protocol. Orders received to add TSH to AM lab draw, ambulate pt and to give pt incentive spirometer.
[2019-03-08] MEDS ORDERED: bisacodyl 10mg suppository rectal RC PRN (10:40)
[2019-03-08 11:00] VITALS: BP 108/42
[2019-03-08 15:00] VITALS: BP 118/72
--- NOTE | 2019-03-08 18:51 | NUR ---
Problems reprioritized. Patient report given, questions answered & plan of care reviewed with POLINA Dominique.
[2019-03-08 20:00] VITALS: BP 112/58
[2019-03-08] MEDS: HYDROmorphone 1 mg/ml syringe IV PRN (20:05)
[2019-03-08] MEDS: docusate sod 100mg capsule PO SCH (21:33)
[2019-03-08 23:00] VITALS: BP 108/46
[2019-03-09] MEDS: HYDROmorphone 1 mg/ml syringe IV PRN ×2 (00:06→10:34)
[2019-03-09] MEDS: heparin 25,000 UNIT/250ml bag 250 ML IV SCH (01:45)
[2019-03-09 03:00] VITALS: BP 109/53
--- NOTE | 2019-03-09 06:34 | NUR ---
Patient in room PCU 3018. I have received report from Trip FISH and had the opportunity to ask questions and assume patient care.
[2019-03-09 07:00] VITALS: BP 133/70
[2019-03-09] MEDS: atenolol 25mg tablet PO SCH (08:00)
[2019-03-09] MEDS: K and/or MAG REPLACEMENT MC SCH (08:00)
[2019-03-09 08:14] LABS: BASOPHILS # (AUTO) 0.1 X10'3 (0-0.2); BASOPHILS % (AUTO) 0.8 % (0-1); EOSINOPHILS # (AUTO) 0.1 X10'3 (0-0.9); EOSINOPHILS % (AUTO) 1.3 % (0-6); HEMATOCRIT 36.1 % (35.0-45.0); HEMOGLOBIN 12.4 g/dl (12.0-16.0); LYMPHOCYTES # (AUTO) 1.8 X10'3 (1.1-4.8); LYMPHOCYTES % (AUTO) 22.2 % (21-51); MEAN CORPUSCULAR HEMOGLOBIN 31.8 PG (27.0-31.0); MEAN CORPUSCULAR HGB CONC 34.4 g/dL (33.0-36.5); MEAN CORPUSCULAR VOLUME 92.5 FL (78-98); MEAN PLATELET VOLUME 8.8 FL (7.4-10.4); MONOCYTES # (AUTO) 0.7 X10'3 (0-0.9); MONOCYTES % (AUTO) 8.4 % (2-12); NEUTROPHILS # (AUTO) 5.3 X10'3 (1.8-7.7); NEUTROPHILS % (AUTO) 67.3 % (42-75); PLATELET COUNT 197 X10'3 (140-440); RED CELL DISTRIBUTION WIDTH 11.9 % (11.5-14.5); WHITE BLOOD COUNT 7.9 X10'3 (4.5-11.0)
[2019-03-09 08:14] LABS: ANTITHROMBIN ACTIVITY 98 % (75-135); ANTITHROMBIN ANTIGEN 81 % (72-124); PROTEIN S, FREE 104 % (57-157); PROTEIN S, TOTAL 77 % (60-150)
[2019-03-09] MEDS: sertraline 50mg tablet PO SCH (08:27)
[2019-03-09] MEDS: lisinopril 10 MG tablet PO SCH (08:27)
[2019-03-09] MEDS: docusate sod 100mg capsule PO SCH (08:28)
[2019-03-09 08:40] LABS: ALANINE AMINOTRANSFERASE 25 U/L (12-78); ALBUMIN 2.9 G/DL (3.4-5.0); ALBUMIN/GLOBULIN RATIO 0.7 (1.1-1.5); ALKALINE PHOSPHATASE 61 IU/L (46-116); ANION GAP 5 (8-16); ASPARTATE AMINO TRANSFERASE 14 U/L (10-37); BILIRUBIN,TOTAL 0.3 MG/DL (0.1-1.0); BLOOD UREA NITROGEN 11 MG/DL (7-18); BUN/CREATININE RATIO 15.1 (6.6-38.0); CALCIUM 9.3 MG/DL (8.5-10.1); CHLORIDE 106 MMOL/L (99-107); CREATININE 0.73 MG/DL (0.40-0.90); GLUCOSE 120 MG/DL (70-104); MAGNESIUM 1.8 MG/DL (1.5-2.4); POTASSIUM 3.5 MMOL/L (3.5-5.1); SODIUM 141 MMOL/L (135-145); TOTAL CARBON DIOXIDE 30.2 MMOL/L (24-32); TOTAL PROTEIN 7.1 G/DL (6.4-8.2); eGFR 86 ML/MIN
[2019-03-09 11:00] VITALS: BP 128/78
[2019-03-09] MEDS ORDERED: ZOL50T PO (12:06)
[2019-03-09] MEDS ORDERED: APIX5TAB3 PO (12:06)
[2019-03-09] MEDS ORDERED: HYDR-4383 PO (12:06)
--- NOTE | 2019-03-09 14:17 | NUR ---
Patient discharged. All discharge information was discussed with patient. She had the opportunity to ask any additional questions. Tele box removed and returned. IV removed cannula intact. New prescriptions were delivered bedside. Patient was wheeled out and accompanied by family member to private vehicle.
--- NOTE | 2019-03-09 14:39 | NUR ---
Orientee documentation: I have reviewed and agree with interventions, assessments performed and documented by Jackie FISH. [place] Medication Administration: For this medication-pass time frame, medication were reviewed, dispensed, administered and documented per hospital policy by Jackie FISH.
== END 2019-03-09 12:40 | disposition home or self-care (01) | DRG 176 ==
LOC: ER 10:36 → PCU 3S 14:42 → CMPBEDREQ 19:35
PROVIDERS: ADMIT Internal Medicine; ATTEND Family Medicine
PROC: B32T1ZZ Computerized Tomography (CT Scan) of Left Pulmonary Artery using Low Osmolar Contrast (ICD-10-PCS; principal; 2019-03-06)
PROC: B3201ZZ Computerized Tomography (CT Scan) of Thoracic Aorta using Low Osmolar Contrast (ICD-10-PCS; 2019-03-06)
PROC: B32S1ZZ Computerized Tomography (CT Scan) of Right Pulmonary Artery using Low Osmolar Contrast (ICD-10-PCS; 2019-03-06)
DX: I26.99 Other pulmonary embolism without acute cor pulmonale (principal); E87.6 Hypokalemia; F32.9 Major depressive disorder, single episode, unspecified; F41.9 Anxiety disorder, unspecified; F17.200 Nicotine dependence, unspecified, uncomplicated; D64.9 Anemia, unspecified; R09.02 Hypoxemia; R07.81 Pleurodynia; I10 Essential (primary) hypertension; Z79.899 Other long term (current) drug therapy; Z90.710 Acquired absence of both cervix and uterus; Z88.1 Allergy status to other antibiotic agents; Z88.0 Allergy status to penicillin
CPT/HCPCS: 36415; 71045; 71275; 80053; 81479; 83735; 83880; 83891; 83894; 83898; 84443; 85025; 85240; 85300; 85301; 85303; 85305; 85306; 85379; 85610; 85730; 86146; 86147; 87070; 93005; 93306; 93970; 96365; 96375; 96376; 99285; G0378; J1170; J1644; J1885; J2405; Q9967

== ENCOUNTER 2019-06-25 02:45 | Emergency (ER) | payer BC, OTHER ==
[~2019-06-25] VITALS: Ht 160 cm; Wt 86.3 kg
[~2019-06-25 02:45] MED LIST changes: +APIX5TAB3 PO; +HYDR-4383 PO; +SERT-153 PO
--- NOTE | 2019-06-25 03:08 | NUR ---
Patient is laying comfortably on gurney, in now obvious distress. She reports she has not had a BM since last Tuesday and is concerned she has a bowel obstruction due to a "incarcerated hernia".
[2019-06-25] MEDS ORDERED: ondansetron/PF 4mg/2ml inj IV ONE (03:30)
[2019-06-25] MEDS ORDERED: normal saline 1000ML IV soln IVB ONE (03:30)
[2019-06-25] MEDS ORDERED: bisacodyl 10mg suppository rectal RC ONE (03:30)
[2019-06-25] MEDS ORDERED: morphine 2 MG/ML inj. syringe IV PRN (03:30)
[2019-06-25] MEDS ORDERED: iohexol 300mg/ml 100ml inj. ONE (03:35)
[2019-06-25] MEDS: diatr meglu/diatrizoate 30ml oral sol.-(3 dose) bottle PO SCH ×3 (03:51→05:30)
[2019-06-25 03:58] LABS: BASOPHILS # (AUTO) 0.1 X10'3 (0-0.2); EOSINOPHILS % (AUTO) 0.5 % (0-6); HEMATOCRIT 34.4 % (35.0-45.0); LYMPHOCYTES # (AUTO) 1.9 X10'3 (1.1-4.8); LYMPHOCYTES % (AUTO) 21.1 % (21-51); MEAN CORPUSCULAR HEMOGLOBIN 32.1 PG (27.0-31.0); MEAN CORPUSCULAR HGB CONC 34.8 g/dL (33.0-36.5); MEAN CORPUSCULAR VOLUME 92.4 FL (78-98); MEAN PLATELET VOLUME 8.5 FL (7.4-10.4); MONOCYTES # (AUTO) 0.9 X10'3 (0-0.9); MONOCYTES % (AUTO) 9.8 % (2-12); NEUTROPHILS % (AUTO) 67.6 % (42-75); PLATELET COUNT 189 X10'3 (140-440); RED BLOOD COUNT 3.73 X10'6 (4.20-5.60); RED CELL DISTRIBUTION WIDTH 12.4 % (11.5-14.5); WHITE BLOOD COUNT 8.8 X10'3 (4.5-11.0)
[2019-06-25 04:05] LABS: PARTIAL THROMBOPLASTIN TIME 28 SECONDS (22-32)
[2019-06-25 04:08] LABS: ALANINE AMINOTRANSFERASE 34 U/L (12-78); ALBUMIN 3.2 G/DL (3.4-5.0); ALBUMIN/GLOBULIN RATIO 0.8 (1.1-1.5); ALKALINE PHOSPHATASE 50 IU/L (46-116); ANION GAP 7 (8-16); ASPARTATE AMINO TRANSFERASE 24 U/L (10-37); BILIRUBIN,TOTAL 0.7 MG/DL (0.1-1.0); BLOOD UREA NITROGEN 14 MG/DL (7-18); BUN/CREATININE RATIO 17.1 (6.6-38.0); CALCIUM 8.6 MG/DL (8.5-10.1); CHLORIDE 100 MMOL/L (99-107); CREATININE 0.82 MG/DL (0.40-0.90); GLUCOSE 113 MG/DL (70-104); LIPASE 55 U/L (73-393); MAGNESIUM 1.9 MG/DL (1.5-2.4); SODIUM 140 MMOL/L (135-145); TOTAL CARBON DIOXIDE 33.2 MMOL/L (24-32); eGFR 75 ML/MIN
[2019-06-25 04:10] LABS: POTASSIUM 2.7 MMOL/L (3.5-5.1)
[2019-06-25] MEDS ORDERED: magnesium 2GM in 50ml NS 50 ML IV ONE (04:10)
[2019-06-25] MEDS ORDERED: potassium Cl 10 mEq/100mL bag IV ONE (04:10)
[2019-06-25] MEDS ORDERED: potassium Cl 20 mEq SR tablet PO ONE ×2 (04:10→06:35)
--- NOTE | 2019-06-25 04:33 | NUR ---
RECEIVED CALL FROM LAB. URINE CULTURE REJECTED DUE TO CONTAMINATION.
[2019-06-25 05:41] VITALS: BP 133/69
--- NOTE | 2019-06-25 05:41 | NUR ---
Patient to CT
[2019-06-25] MEDS ORDERED: POTA20TA19 PO (06:44)
== END 2019-06-25 07:48 | disposition home or self-care (01) ==
LOC: ER 02:47
DX: E87.6 Hypokalemia (principal); K43.9 Ventral hernia without obstruction or gangrene; I10 Essential (primary) hypertension; F41.9 Anxiety disorder, unspecified; F32.9 Major depressive disorder, single episode, unspecified; Z86.69 Personal history of other diseases of the nervous system and sense organs; Z90.710 Acquired absence of both cervix and uterus; Z98.890 Other specified postprocedural states; Z88.1 Allergy status to other antibiotic agents; Z88.0 Allergy status to penicillin; Z79.01 Long term (current) use of anticoagulants; Z79.899 Other long term (current) drug therapy
CPT/HCPCS: 36415; 74018; 74177; 80053; 83690; 83735; 85025; 85610; 85730; 93005; 96365; 96375; 99284; J2270; J2405; J3475; J3480; J7030; Q9963; Q9967

== ENCOUNTER 2019-09-11 17:31 | Emergency (ER) | payer BC ==
[~2019-09-11] VITALS: Ht 162.6 cm; Wt 81.8 kg
[2019-09-11] MEDS ORDERED: acetaminophen 325mg tablet PO ONE (17:45)
[2019-09-11] MEDS ORDERED: LORazepam 1 MG tablet PO ONE (17:45)
--- NOTE | 2019-09-11 17:47 | NUR ---
TO CT SCAN VIA WHEELCHAIR WITH NURSE AND MONITOR
--- NOTE | 2019-09-11 17:58 | NUR ---
BACK FROM CT IN STABLE CONDITION.
[2019-09-11 18:07] VITALS: BP 148/87
--- NOTE | 2019-09-11 18:08 | NUR ---
TRAUMA CALLED OFF BY JOSEFINA CHANDLER
== END 2019-09-11 18:20 | disposition home or self-care (01) ==
LOC: ER 17:31
DX: R51 Headache (principal); I10 Essential (primary) hypertension; F41.9 Anxiety disorder, unspecified; F32.9 Major depressive disorder, single episode, unspecified; Z90.710 Acquired absence of both cervix and uterus; Z98.890 Other specified postprocedural states; Z56.0 Unemployment, unspecified; Z88.1 Allergy status to other antibiotic agents; Z79.899 Other long term (current) drug therapy; Z79.01 Long term (current) use of anticoagulants; Z86.69 Personal history of other diseases of the nervous system and sense organs; W18.39XA Other fall on same level, initial encounter; Y93.89 Activity, other specified; Y92.89 Other specified places as the place of occurrence of the external cause; Y99.8 Other external cause status
CPT/HCPCS: 70450; 99284

== ENCOUNTER 2019-10-19 17:59 | Emergency (ER) | payer BC ==
[~2019-10-19] VITALS: Ht 162.6 cm; Wt 81.8 kg
[2019-10-19 19:07] LABS: BASOPHILS # (AUTO) 0.1 X10'3 (0-0.2); BASOPHILS % (AUTO) 0.8 % (0-1); EOSINOPHILS % (AUTO) 0.7 % (0-6); HEMATOCRIT 40.3 % (35.0-45.0); HEMOGLOBIN 13.5 g/dl (12.0-16.0); LYMPHOCYTES # (AUTO) 2.3 X10'3 (1.1-4.8); MEAN CORPUSCULAR HEMOGLOBIN 29.3 PG (27.0-31.0); MEAN CORPUSCULAR HGB CONC 33.4 g/dL (33.0-36.5); MEAN CORPUSCULAR VOLUME 87.8 FL (78-98); MEAN PLATELET VOLUME 8.3 FL (7.4-10.4); MONOCYTES # (AUTO) 0.5 X10'3 (0-0.9); MONOCYTES % (AUTO) 7.8 % (2-12); NEUTROPHILS # (AUTO) 3.9 X10'3 (1.8-7.7); NEUTROPHILS % (AUTO) 56.7 % (42-75); PLATELET COUNT 199 X10'3 (140-440); RED BLOOD COUNT 4.59 X10'6 (4.20-5.60); RED CELL DISTRIBUTION WIDTH 12.8 % (11.5-14.5); WHITE BLOOD COUNT 6.8 X10'3 (4.5-11.0)
[2019-10-19 19:31] LABS: ALANINE AMINOTRANSFERASE 26 U/L (12-78); ALBUMIN 3.7 G/DL (3.4-5.0); ALBUMIN/GLOBULIN RATIO 0.9 (1.1-1.5); ALKALINE PHOSPHATASE 75 IU/L (46-116); ANION GAP 5 (8-16); ASPARTATE AMINO TRANSFERASE 14 U/L (10-37); BILIRUBIN,TOTAL 0.3 MG/DL (0.1-1.0); BLOOD UREA NITROGEN 24 MG/DL (7-18); BUN/CREATININE RATIO 27.3 (6.6-38.0); CALCIUM 8.9 MG/DL (8.5-10.1); CHLORIDE 106 MMOL/L (99-107); CREATININE 0.88 MG/DL (0.40-0.90); GLUCOSE 85 MG/DL (70-104); POTASSIUM 3.3 MMOL/L (3.5-5.1); SODIUM 144 MMOL/L (135-145); TOTAL CARBON DIOXIDE 33.5 MMOL/L (24-32); TOTAL PROTEIN 7.9 G/DL (6.4-8.2); eGFR 69 ML/MIN
[2019-10-19 20:36] VITALS: BP 142/73
[2019-10-19] MEDS ORDERED: CYCL-1 PO (20:39)
[2019-10-19] MEDS ORDERED: TRAM50TA2 PO (20:39)
[2019-10-19] MEDS ORDERED: cyclobenzaprine 10mg tablet PO ONE (20:40)
[2019-10-19] MEDS ORDERED: traMADol 50MG tablet PO ONE (20:40)
[2019-10-20] MEDS ORDERED: ORPH100T2 PO (22:15)
== END 2019-10-19 20:49 | disposition home or self-care (01) ==
LOC: ER 18:00
DX: R07.89 Other chest pain (principal); M54.2 Cervicalgia; I10 Essential (primary) hypertension; Z86.711 Personal history of pulmonary embolism; Z98.890 Other specified postprocedural states; Z90.710 Acquired absence of both cervix and uterus; Z88.1 Allergy status to other antibiotic agents; Z88.0 Allergy status to penicillin; Z79.899 Other long term (current) drug therapy
CPT/HCPCS: 36415; 71045; 80053; 84484; 85025; 93005; 99284

== ENCOUNTER 2019-10-20 19:22 | Emergency (ER) | payer BC ==
[~2019-10-20] VITALS: Ht 162.6 cm; Wt 81.8 kg
[~2019-10-20 19:22] MED LIST changes: +CYCL-1 PO; +TRAM50TA2 PO
[2019-10-20] MEDS ORDERED: orphenadrine citrate 60mg/2ml inj. IM ONE (21:15)
[2019-10-20] MEDS ORDERED: ketorolac tromethamine 15mg/ml inj. IM ONE (21:50)
[2019-10-20] MEDS ORDERED: ORPH100T2 PO (22:15)
[2019-10-20 22:29] VITALS: BP 156/94
== END 2019-10-20 22:32 | disposition home or self-care (01) ==
LOC: ER 19:22
DX: M54.12 Radiculopathy, cervical region (principal); M25.512 Pain in left shoulder; I10 Essential (primary) hypertension; Z86.711 Personal history of pulmonary embolism; Z98.890 Other specified postprocedural states; Z90.710 Acquired absence of both cervix and uterus; Z88.1 Allergy status to other antibiotic agents; Z88.0 Allergy status to penicillin; Z79.899 Other long term (current) drug therapy
CPT/HCPCS: 96372; 99283; J1885; J2360

== ENCOUNTER 2019-11-22 20:47 | Emergency (ER) | payer BC ==
[~2019-11-22] VITALS: Ht 160 cm; Wt 81.0 kg
[~2019-11-22 20:47] MED LIST changes: +ORPH100T2 PO; -TRAM50TA2 PO
[2019-11-22 21:32] LABS: BASOPHILS % (AUTO) 0.5 % (0-1); EOSINOPHILS # (AUTO) 0.1 X10'3 (0-0.9); EOSINOPHILS % (AUTO) 0.9 % (0-6); HEMATOCRIT 37.4 % (35.0-45.0); HEMOGLOBIN 12.5 g/dl (12.0-16.0); LYMPHOCYTES # (AUTO) 2.1 X10'3 (1.1-4.8); LYMPHOCYTES % (AUTO) 32.8 % (21-51); MEAN CORPUSCULAR HEMOGLOBIN 28.9 PG (27.0-31.0); MEAN CORPUSCULAR HGB CONC 33.4 g/dL (33.0-36.5); MEAN CORPUSCULAR VOLUME 86.6 FL (78-98); MEAN PLATELET VOLUME 8.4 FL (7.4-10.4); MONOCYTES # (AUTO) 0.6 X10'3 (0-0.9); MONOCYTES % (AUTO) 10.2 % (2-12); NEUTROPHILS # (AUTO) 3.5 X10'3 (1.8-7.7); NEUTROPHILS % (AUTO) 55.6 % (42-75); PLATELET COUNT 181 X10'3 (140-440); RED BLOOD COUNT 4.32 X10'6 (4.20-5.60); RED CELL DISTRIBUTION WIDTH 14.5 % (11.5-14.5); WHITE BLOOD COUNT 6.3 X10'3 (4.5-11.0)
[2019-11-22 21:38] LABS: PARTIAL THROMBOPLASTIN TIME 27 SECONDS (22-32)
[2019-11-22 21:41] LABS: ALANINE AMINOTRANSFERASE 23 U/L (12-78); ALBUMIN 3.4 G/DL (3.4-5.0); ALBUMIN/GLOBULIN RATIO 0.9 (1.1-1.5); ALKALINE PHOSPHATASE 87 IU/L (46-116); ANION GAP 7 (8-16); ASPARTATE AMINO TRANSFERASE 21 U/L (10-37); BILIRUBIN,TOTAL 0.3 MG/DL (0.1-1.0); BLOOD UREA NITROGEN 17 MG/DL (7-18); BUN/CREATININE RATIO 14.3 (6.6-38.0); CALCIUM 8.8 MG/DL (8.5-10.1); CHLORIDE 105 MMOL/L (99-107); CREATININE 1.19 MG/DL (0.40-0.90); GLUCOSE 117 MG/DL (70-104); POTASSIUM 3.8 MMOL/L (3.5-5.1); SODIUM 141 MMOL/L (135-145); TOTAL CARBON DIOXIDE 29.3 MMOL/L (24-32); TOTAL PROTEIN 7.3 G/DL (6.4-8.2); eGFR 49 ML/MIN
--- NOTE | 2019-11-22 22:18 | NUR ---
DR. SIERRA AT BEDSIDE ASSESSING PATIENT
[2019-11-22] MEDS ORDERED: albuterol 2.5 MG/3 ML nebule NEB ONE (22:30)
[2019-11-22] MEDS ORDERED: iohexol 350MG/ML 100ml bottle IV ONE (22:32)
[2019-11-22] MEDS ORDERED: ketorolac tromethamine 15mg/ml inj. IV ONE (23:55)
[2019-11-23 00:10] VITALS: BP 134/78
== END 2019-11-23 00:37 | disposition home or self-care (01) ==
LOC: ER 20:47
DX: R09.1 Pleurisy (principal); R22.43 Localized swelling, mass and lump, lower limb, bilateral; I10 Essential (primary) hypertension; F41.9 Anxiety disorder, unspecified; F32.9 Major depressive disorder, single episode, unspecified; Z86.69 Personal history of other diseases of the nervous system and sense organs; Z86.711 Personal history of pulmonary embolism; Z90.710 Acquired absence of both cervix and uterus; Z98.890 Other specified postprocedural states; Z88.8 Allergy status to other drugs, medicaments and biological substances; Z88.0 Allergy status to penicillin; Z79.01 Long term (current) use of anticoagulants; Z79.899 Other long term (current) drug therapy
CPT/HCPCS: 36415; 71045; 71275; 80053; 84484; 85025; 85610; 85730; 93005; 94640; 96374; 99285; J1885; Q9967; 94760

== ENCOUNTER 2020-04-22 05:35 | Day surgery (SDC) | payer BC, SELFPAY ==
[2020-04-16 16:51] LABS: BASOPHILS % (AUTO) 0.5 % (0-1); EOSINOPHILS # (AUTO) 0.1 X10'3 (0-0.9); EOSINOPHILS % (AUTO) 0.9 % (0-6); LYMPHOCYTES # (AUTO) 1.5 X10'3 (1.1-4.8); LYMPHOCYTES % (AUTO) 23.9 % (21-51); MEAN CORPUSCULAR HEMOGLOBIN 29.6 PG (27.0-31.0); MEAN CORPUSCULAR HGB CONC 32.8 g/dL (33.0-36.5); MEAN CORPUSCULAR VOLUME 90.3 FL (78-98); MONOCYTES # (AUTO) 0.4 X10'3 (0-0.9); MONOCYTES % (AUTO) 6.8 % (2-12); NEUTROPHILS # (AUTO) 4.3 X10'3 (1.8-7.7); NEUTROPHILS % (AUTO) 67.9 % (42-75); PRE OP HEMATOCRIT 41.5 % (35.0-45.0); PRE OP HEMOGLOBIN 13.6 g/dL (12.0-16.0); PRE OP PLATELET COUNT 176 X10'3 (140-440); RED BLOOD COUNT 4.59 X10'6 (4.20-5.60); RED CELL DISTRIBUTION WIDTH 14.3 % (11.5-14.5)
[2020-04-16 17:02] LABS: ALBUMIN 3.5 G/DL (3.4-5.0); ALBUMIN/GLOBULIN RATIO 0.9 (1.1-1.5); ALKALINE PHOSPHATASE 86 IU/L (46-116); BLOOD UREA NITROGEN 18 MG/DL (7-18); BUN/CREATININE RATIO 21.2 (6.6-38.0); CALCIUM 8.6 MG/DL (8.5-10.1); CHLORIDE 105 MMOL/L (99-107); CREATININE 0.85 MG/DL (0.40-0.90); PRE OP ALT 32 U/L (30-65); PRE OP ANION GAP 3 (8-16); PRE OP AST 21 U/L (10-37); PRE OP BILIRUB, TOTAL 0.5 MG/DL (0.0-1.0); PRE OP GLUCOSE 156 MG/DL (70-104); PRE OP POTASSIUM 3.4 MMOL/L (3.4-5.1); PRE OP SODIUM 140 MMOL/L (135-145); TOTAL CARBON DIOXIDE 32.3 MMOL/L (24-32); TOTAL PROTEIN 7.6 G/DL (6.4-8.2); eGFR 72 ML/MIN
[~2020-04-22] VITALS: Ht 160 cm; Wt 86.6 kg
[2020-04-22] VITALS (18 sets, daily range): BP systolic 126–146; BP diastolic 63–83
[~2020-04-22 05:35] MED LIST changes: +BUPR1FIL3 SL; -CYCL-1 PO; +DOCUMENT DATE & TIME OF BETA-BLOCKER PO ONE; +FURO-150 PO; -HYDR-4383 PO; +LINA145C PO; -ORPH100T2 PO; -SERT-153 PO; -SERT100T PO; +SERT50TA PO; +clindamycin-Cleocin 900mg/D5W 50 ML IV ONE; +famotidine 20mg tablet PO ONE; +ringers solution, lacted 1,000 ML IV SCH
[2020-04-22] MEDS ORDERED: [UNRECOGNIZED DRUG - REMARK] SQ (06:21)
[2020-04-22] MEDS ORDERED: BUPIVAcaine/PF 2.5mg/ml (0.25%) 10ml vial ONE (06:53)
[2020-04-22] MEDS ORDERED: BUPIVACAINE liposomal/PF 13.3 MG/ML vial IM ONE (06:53)
[2020-04-22] MEDS ORDERED: BUPIVAcaine/PF 2.5 mg/ml (0.25%) 30ml vial ONE (06:53)
[2020-04-22] MEDS ORDERED: LIDOcaine 1% 30ml preserv. free vial ONE (06:53)
[2020-04-22] MEDS ORDERED: sevoflurane 250ml liquid IH ONE (07:28)
[2020-04-22] MEDS ORDERED: glycopyrrolate 0.2mg/ml inj ONE (07:28)
[2020-04-22] MEDS ORDERED: rocuronium 10mg/ml inj IV ONE ×2 (07:28→07:38)
[2020-04-22] MEDS ORDERED: neostigmine methylsulfate 1 MG/ML 10ml vial ONE (07:28)
[2020-04-22] MEDS ORDERED: dexamethasone sod phosphate 10mg/ml inj ONE (07:28)
[2020-04-22] MEDS ORDERED: midazolam 2 mg/2 ml injection ONE (07:36)
[2020-04-22] MEDS ORDERED: propofol inj 20 ML IV ONE (07:37)
[2020-04-22] MEDS ORDERED: LIDOcaine 2% (20mg/ml) 5ml vial ONE (07:37)
[2020-04-22] MEDS ORDERED: fentaNYL /PF 50mcg/ml 5ml ampule ONE (07:37)
[2020-04-22] MEDS ORDERED: ondansetron/PF 4mg/2ml inj ONE (07:38)
[2020-04-22] MEDS ORDERED: acetaminophen 1,000mg/100ml IV 100 ML IV ONE (08:41)
[2020-04-22] MEDS ORDERED: meperidine/PF 25mg/ml syringe ONE (09:46)
[2020-04-22] MEDS ORDERED: oxyCODONE/APAP 10/325mg tablet PO PRN (11:10)
--- NOTE | 2020-04-22 11:16 | NUR ---
RECEIVED FROM OR VIA [facility] ACCOMPANIED BY ANESTHESIOLOGIST DR TORRES, REPORT GIVEN. PT DROWSY BUT AWAKENS AND DENIES PAIN AT THIS TIME. ABD SOFT, LG BANDAID DRESSING X 2 CDI WITH ABD BINDER X2 ON AND INTACT. SKIN PINK AND WARM, GOOD CAP REFILL, PERIPHERAL PULSES PRESENT, VSS, RESTING COMFORTABLY.20 GAUGE PIV L AC PATENT AND RUNNING LR AT 100 ML/HR
[2020-04-22] MEDS ORDERED: ringers solution, lacted 1,000 ML IV SCH (11:49)
[2020-04-22] MEDS ORDERED: ondansetron/PF 4mg/2ml inj IV PRN (11:50)
[2020-04-22] MEDS ORDERED: meperidine/PF 25mg/ml syringe IV PRN ×2 (11:50)
[2020-04-22] MEDS ORDERED: morphine 4 MG/ML inj SYRINge IV PRN (11:50)
[2020-04-22] MEDS ORDERED: morphine 2 MG/ML inj. syringe IV PRN (11:50)
[2020-04-22] MEDS ORDERED: proCHLORperazine 10 MG/2 ml inj IV PRN (11:50)
[2020-04-22] MEDS: meperidine/PF 25mg/ml syringe IV PRN ×4 (12:38→13:43)
--- NOTE | 2020-04-22 14:06 | NUR ---
PT TOLERATING FLUIDS WELL, ABLE TO AMBULATE TO RESTROOM AND VOID, AWAKE AND ALERT WITH PAIN LEVEL AT 5 . ABD SOFT, LG BANDAID DRESSING X 2 CDI WITH ABD BINDER X2 ON AND INTACT. SKIN PINK AND WARM, GOOD CAP REFILL, PERIPHERAL PULSES PRESENT, VSS.20 GAUGE PIV L AC DC/D CATH TIP INTACT. DISCHARGE INSTRUCTIONS GIVEN AND PT VERBALIZED UNDERSTANDING. TRANSPORTED VIA WHEELCHAIR TO SPOUSE IN PRIVATE VEHICLE TO HOME.
== END 2020-04-22 14:06 | disposition home or self-care (01) ==
LOC: PAS 05:35
PROVIDERS: ATTEND Surgery
DX: K43.0 Incisional hernia with obstruction, without gangrene (principal); Z11.59 Encounter for screening for other viral diseases; Z79.899 Other long term (current) drug therapy; Z79.01 Long term (current) use of anticoagulants; I10 Essential (primary) hypertension; F41.9 Anxiety disorder, unspecified; F32.9 Major depressive disorder, single episode, unspecified; M19.90 Unspecified osteoarthritis, unspecified site; Z86.711 Personal history of pulmonary embolism; Z98.890 Other specified postprocedural states; Z90.710 Acquired absence of both cervix and uterus; Z88.8 Allergy status to other drugs, medicaments and biological substances; Z88.0 Allergy status to penicillin; Z82.49 Family history of ischemic heart disease and other diseases of the circulatory system; Z83.3 Family history of diabetes mellitus; Z80.59 Family history of malignant neoplasm of other urinary tract organ; Z80.8 Family history of malignant neoplasm of other organs or systems; Z87.891 Personal history of nicotine dependence
CPT/HCPCS: 36415; 49657; 64488; 80053; 82948; 85025; 85610; 85730; C1713; C1781; C9290; J0131; J1100; J2001; J2175; J2250; J2405; J2704; J2710; J3010; J3490; J7120; S2900; U0003; A4215; A4618

== ENCOUNTER 2020-04-26 21:35 | Emergency (ER) | payer BC ==
[~2020-04-26] VITALS: Ht 160 cm; Wt 81.8 kg
[~2020-04-26 21:35] MED LIST changes: -DOCUMENT DATE & TIME OF BETA-BLOCKER PO ONE; +[UNRECOGNIZED DRUG - REMARK] SQ; -clindamycin-Cleocin 900mg/D5W 50 ML IV ONE; -famotidine 20mg tablet PO ONE; -ringers solution, lacted 1,000 ML IV SCH
--- NOTE | 2020-04-26 22:16 | NUR ---
relieving RN for break, pt is resting quietly on gurney, resp even and unlabored, had hernia repair by Dr Dinero on 04/22, c/o fever x1day, abd pain, no cough, no SOB, referred to ER by Dr Duarte for evaluation,
[2020-04-26] MEDS ORDERED: morphine 10mg/ml inj. IV ONE (23:35)
[2020-04-26] MEDS ORDERED: ondansetron/PF 4mg/2ml inj IV ONE (23:35)
[2020-04-26 23:52] LABS: BASOPHILS % (AUTO) 0.4 % (0-1); EOSINOPHILS # (AUTO) 0.1 X10'3 (0-0.9); EOSINOPHILS % (AUTO) 0.7 % (0-6); HEMATOCRIT 38.5 % (35.0-45.0); LYMPHOCYTES # (AUTO) 1.7 X10'3 (1.1-4.8); LYMPHOCYTES % (AUTO) 19.3 % (21-51); MEAN CORPUSCULAR HEMOGLOBIN 30.3 PG (27.0-31.0); MEAN CORPUSCULAR HGB CONC 33.9 g/dL (33.0-36.5); MEAN CORPUSCULAR VOLUME 89.4 FL (78-98); MEAN PLATELET VOLUME 8.5 FL (7.4-10.4); MONOCYTES # (AUTO) 0.6 X10'3 (0-0.9); MONOCYTES % (AUTO) 7.3 % (2-12); NEUTROPHILS # (AUTO) 6.3 X10'3 (1.8-7.7); NEUTROPHILS % (AUTO) 72.3 % (42-75); PLATELET COUNT 212 X10'3 (140-440); RED BLOOD COUNT 4.31 X10'6 (4.20-5.60); RED CELL DISTRIBUTION WIDTH 13.9 % (11.5-14.5); WHITE BLOOD COUNT 8.7 X10'3 (4.5-11.0)
[2020-04-26 23:58] LABS: ALANINE AMINOTRANSFERASE 34 U/L (12-78); ALBUMIN 3.2 G/DL (3.4-5.0); ALBUMIN/GLOBULIN RATIO 0.7 (1.1-1.5); ALKALINE PHOSPHATASE 68 IU/L (46-116); ANION GAP 5 (8-16); ASPARTATE AMINO TRANSFERASE 16 U/L (10-37); BILIRUBIN,TOTAL 0.3 MG/DL (0.1-1.0); BLOOD UREA NITROGEN 14 MG/DL (7-18); BUN/CREATININE RATIO 15.7 (6.6-38.0); CALCIUM 8.6 MG/DL (8.5-10.1); CHLORIDE 104 MMOL/L (99-107); CREATININE 0.89 MG/DL (0.40-0.90); GLUCOSE 149 MG/DL (70-104); POTASSIUM 3.8 MMOL/L (3.5-5.1); SODIUM 140 MMOL/L (135-145); TOTAL CARBON DIOXIDE 30.7 MMOL/L (24-32); TOTAL PROTEIN 7.5 G/DL (6.4-8.2); eGFR 68 ML/MIN
[2020-04-27] MEDS ORDERED: iohexol 300mg/ml 100ml inj. ONE (00:17)
[2020-04-27 00:22] LABS: PARTIAL THROMBOPLASTIN TIME 27 SECONDS (22-32)
[2020-04-27 01:20] LABS: CLARITY,URINE CLEAR (Clear); COLOR,URINE YELLOW (Yellow); GLUCOSE, URINE NEGATIVE (Neg); KETONES,URINE NEGATIVE (Neg); LEUKOCYTE ESTERASE ,URINE NEGATIVE (Neg); NITRITES, URINE NEGATIVE (Neg); OCCULT BLOOD,URINE MODERATE (Neg); PH,URINE 6.5 (4.8-8.0); PROTEIN,URINE NEGATIVE (Neg); UROBILINOGEN,URINE 0.2 E.U/dL (0.2-1.0)
[2020-04-27] MEDS: metroNIDAZOLE-Flagyl 500mg/NS 100 ML IV ONE ×2 (01:25→02:04)
[2020-04-27] MEDS ORDERED: CefTRIAXone/D5W-Rocephin 1gm 50 ML IV ONE (01:25)
[2020-04-27] MEDS ORDERED: OXYC-150 PO (01:29)
[2020-04-27 01:31] LABS: UA COLLECTION TYPE CLN CATCH MIDSTREAM
[2020-04-27 01:44] LABS: BACTERIA,URINE FEW /HPF (Neg); SQUAMOUS EPITHELIAL CELL,UR FEW /LPF (FEW); WBC,URINE 0-4 /HPF (0-4)
[2020-04-27 01:45] LABS: MUCUS STRANDS NONE SEEN /LPF (Neg)
[2020-04-27] MEDS ORDERED: SULF1TAB49 PO (01:54)
[2020-04-27 02:26] VITALS: BP 145/75
== END 2020-04-27 02:28 | disposition home or self-care (01) ==
LOC: ER 21:37
DX: T81.40XA Infection following a procedure, unspecified, initial encounter (principal); R10.9 Unspecified abdominal pain; R50.9 Fever, unspecified; I10 Essential (primary) hypertension; F41.9 Anxiety disorder, unspecified; F32.9 Major depressive disorder, single episode, unspecified; Z86.69 Personal history of other diseases of the nervous system and sense organs; Z86.711 Personal history of pulmonary embolism; Z90.710 Acquired absence of both cervix and uterus; Z98.890 Other specified postprocedural states; Z88.0 Allergy status to penicillin; Z88.1 Allergy status to other antibiotic agents; Z79.2 Long term (current) use of antibiotics; Z79.899 Other long term (current) drug therapy; Y83.8 Other surgical procedures as the cause of abnormal reaction of the patient, or of later complication, without mention of misadventure at the time of the procedure; Y92.89 Other specified places as the place of occurrence of the external cause
CPT/HCPCS: 36415; 74177; 80053; 81001; 83605; 85025; 85610; 85730; 87040; 96374; 96375; 99285; J2270; J2405; Q9967; J3490

== ENCOUNTER 2020-07-18 17:08 | Emergency (ER) | payer BC, SELFPAY ==
[~2020-07-18] VITALS: Ht 162.6 cm; Wt 88.2 kg
[~2020-07-18 17:08] MED LIST changes: +OXYC-150 PO; -[UNRECOGNIZED DRUG - REMARK] SQ
[2020-07-18 17:13] VITALS: BP 161/76
[2020-07-18] MEDS ORDERED: HYDROcodone/acetaminophen 10/325mg tab PO ONE (19:55)
[2020-07-18] MEDS ORDERED: HYDROcodone/acetaminophen 5mg/325mg tablet PO ONE (22:25)
[2020-07-18] MEDS ORDERED: HYDR-3965 PO (22:28)
== END 2020-07-18 22:43 | disposition home or self-care (01) ==
LOC: ER 17:08
DX: M25.562 Pain in left knee (principal); R22.42 Localized swelling, mass and lump, left lower limb; I10 Essential (primary) hypertension; F41.9 Anxiety disorder, unspecified; F32.9 Major depressive disorder, single episode, unspecified; Z86.69 Personal history of other diseases of the nervous system and sense organs; Z86.711 Personal history of pulmonary embolism; Z86.718 Personal history of other venous thrombosis and embolism; Z90.710 Acquired absence of both cervix and uterus; Z98.890 Other specified postprocedural states; Z88.0 Allergy status to penicillin; Z88.8 Allergy status to other drugs, medicaments and biological substances; Z79.01 Long term (current) use of anticoagulants; Z79.899 Other long term (current) drug therapy
CPT/HCPCS: 36415; 84550; 93971; 99284

== ENCOUNTER 2021-01-14 09:25 | Emergency (ER) | payer BC ==
[~2021-01-14] VITALS: Ht 160 cm; Wt 86.4 kg
[2021-01-14] MEDS ORDERED: ketorolac tromethamine 15mg/ml inj. IM ONE (10:55)
[2021-01-14] MEDS ORDERED: LIDOcaine 1% 30ml preserv. free vial IJ ONE (10:55)
--- NOTE | 2021-01-14 11:00 | NUR ---
U/S AT BED SIDE
[2021-01-14] MEDS ORDERED: cyclobenzaprine 10mg tablet PO ONE (12:00)
[2021-01-14] MEDS ORDERED: LIDO700A32 TOP (13:25)
[2021-01-14] MEDS ORDERED: CYCL-1 PO (13:55)
[2021-01-14 14:02] VITALS: BP 111/51
== END 2021-01-14 14:03 | disposition home or self-care (01) ==
LOC: ER 09:26
DX: M54.2 Cervicalgia (principal); M79.661 Pain in right lower leg; M25.512 Pain in left shoulder; I10 Essential (primary) hypertension; M19.90 Unspecified osteoarthritis, unspecified site; F41.9 Anxiety disorder, unspecified; F32.9 Major depressive disorder, single episode, unspecified; Z86.711 Personal history of pulmonary embolism; Z86.718 Personal history of other venous thrombosis and embolism; Z98.890 Other specified postprocedural states; Z88.1 Allergy status to other antibiotic agents; Z88.0 Allergy status to penicillin; Z79.01 Long term (current) use of anticoagulants; Z79.899 Other long term (current) drug therapy
CPT/HCPCS: 20552; 93005; 93970; 96372; 99284; J1885; 93971; 99285

== ENCOUNTER 2021-07-12 11:55 | Emergency (ER) | payer BC ==
[~2021-07-12] VITALS: Ht 160 cm; Wt 86.4 kg
[~2021-07-12 11:55] MED LIST changes: +CYCL-1 PO; +LIDO700A32 TOP
[2021-07-12 12:20] VITALS: BP 126/80
== END 2021-07-12 14:47 | disposition home or self-care (01) ==
LOC: ER 11:56
DX: B34.9 Viral infection, unspecified (principal); I10 Essential (primary) hypertension; F41.9 Anxiety disorder, unspecified; F32.9 Major depressive disorder, single episode, unspecified; Z88.1 Allergy status to other antibiotic agents; Z88.0 Allergy status to penicillin; Z20.822 Contact with and (suspected) exposure to COVID-19
CPT/HCPCS: 71045; 87635; 99284; C9803; 99283